=== PATIENT | female | born 1990 | race Caucasian/White ===

== ENCOUNTER 2018-06-17 22:15 | Emergency (ER) | payer BC, OTHER ==
[2018-06-18] MEDS: HYDROCODONE/APAP (5/325) TAB PO (00:45)
== END 2018-06-18 02:40 | disposition home or self-care (01) ==
LOC: FTE 22:15
DX: S92.352A Displaced fracture of fifth metatarsal bone, left foot, initial encounter for closed fracture (principal); W10.9XXA Fall (on) (from) unspecified stairs and steps, initial encounter; Y92.9 Unspecified place or not applicable
CPT/HCPCS: 29515; 73630-LT; 99283-25